=== PATIENT | female | born 1960 | race Hispanic/Latino ===

== ENCOUNTER 2018-09-02 18:41 | Inpatient (IN) | payer SELFPAY ==
[~2018-09-02 18:41] MED LIST: ISOVUE-370 76%-LOCM 1 ML ONE
[2018-09-02 19:29] LABS: #Basophils 0.1 thou/uL (0.0-0.2); #Lymphocytes 1.8 thou/uL (1.20-3.40); #Monocytes 0.3 thou/uL (0.11-0.59); #Neutrophils 6.3 thou/uL (1.40-6.50); %Basophils 0.8 % (0.0-1.0); %Eosinophils 0.2 % (0.0-10.0); %Lymphocytes 21.1 % (21.0-51.0); %Monocytes 3.9 % (0.0-10.0); %Neutrophils 74.1 % (42.0-75.0); Hemoglobin 3.8 g/dL (12.0-16.0); Mean Corpuscular Hemoglobin 22.2 pg (27.0-31.0); Mean Corpuscular Volume 73.9 fL (78.0-98.0); Mean Platelet Volume 7.2 fL (7.4-10.4); Platelet Count 421 thou/uL (130-400); RBC Distribution Width 14.6 % (11.5-14.5); Red Blood Cell (RBC) Count 1.73 mill/uL (4.20-5.40); White Blood Cell (WBC) Count 8.5 thou/uL (4.8-10.8)
[2018-09-02 19:29] LABS: Bilirubin Negative (Negative); Blood, Urine Negative (Negative); Clarity CLEAR (Clear); Glucose, Urine (Dipstick) Negative (Negative); Leukocyte Negative (Negative); Nitrite Negative (Negative); Protein, Urine (Dipstick) Negative (Neg-Trace); Specific Gravity, Urine 1.016 (1.002-1.036); Urobilinogen 0.2 mg/dL (0.2-1.0); pH, Urine 5.5 (5.0-9.0)
[2018-09-02 19:35] LABS: Cocaine Metabolite Screen Not Detected (NotDetected); Medtox Reader # READER 1; Methamphetamine Detected (NotDetected); Phencyclidine (PCP) Not Detected (NotDetected); THC/Cannabinoid Screen Not Detected (NotDetected)
[2018-09-02 19:36] LABS: Amphetamine Detected (NotDetected); Barbiturates Screen Not Detected (NotDetected); Benzodiazepine Screen Not Detected (NotDetected); Medtox Control Line Valid? VALID (VALID); Methadone Not Detected (NotDetected); Opiate Screen Detected (NotDetected); Oxycodone Screen Not Detected (NotDetected); Tricyclic Screen Not Detected (NotDetected)
[2018-09-02 19:40] LABS: Acetaminophen Less than 6.0 mcg/mL (10.0-30.0); Alcohol Less than 10 mg/dL (Less than 10); Salicylate Less than 8.0 mg/dL (15.0-30.0)
[2018-09-02 19:41] LABS: ALT (SGPT) 13 U/L (8-55); AST (SGOT) 16 U/L (5-34); Albumin 3.3 g/dL (3.5-5.0); Alkaline Phosphatase 49 U/L (40-150); Anion Gap 10 mmol/L (10-20); BUN (Urea Nitrogen) 32 mg/dL (9.8-20.1); Bilirubin, Total 0.2 mg/dL (0.2-1.2); Calc. Creatinine Clearance 0 mL/min (70-130); Calcium 8.4 mg/dL (7.8-10.44); Carbon Dioxide 24 mmol/L (22-29); Chloride 111 mmol/L (98-107); Estimated GFR-MDRD 83; Globulin 2.2 g/dL (2.4-3.5); Glucose 127 mg/dL (70-105); Potassium 3.6 mmol/L (3.5-5.1); Protein, Total 5.5 g/dL (6.0-8.3); Sodium 141 mmol/L (136-145)
[2018-09-02 19:45] LABS: Anisocytosis SLIGHT = 6-15 cells (100X) (0-5/hpf); Hypochromia SLIGHT = 6-15 cells (100X) (0-5/hpf); MDiff Complete? YES; Microcytosis SLIGHT = 6-15 cells (100X) (0-5/hpf); Ovalocytes SLIGHT = 2-5 cells (100X) (0-1/hpf); Platelet Morphology Comment Appears Increased; Polychromasia MODERATE = 3-4 cells (100X) (0-2/hpf); Reflex for Review?? YES; Schistocytes SLIGHT = 2-5 cells (100X) (0-1/hpf); Target Cells SLIGHT = 2-5 cells (100X) (0-1/hpf)
[2018-09-02 19:49] LABS: CK (CPK) 87 U/L (29-168); Lipase 13 U/L (8-78)
--- NOTE | 2018-09-02 20:34 | RAD ---
PORTABLE CHEST: History: Chronic back pain, worsening mental status changes. Comparison: 01-22-04 FINDINGS: Heart size and mediastinum are within normal limits. The lungs are clear of infiltrate. No significan t bony findings. IMPRESSION: No active intrathoracic disease. POS: [facility]
--- NOTE | 2018-09-02 21:17 | CT ---
NONCONTRAST CT HEAD: Date: 09-02-18 History: Altered mental status. Comparison: 01-22-04 FINDINGS: There is no evidence of hemorrhage, acute infarction, mass effect or midline shift. Ventricular syste m is noted in size, shape, and position. The visualized paranasal sinuses and mastoid air cells are c lear. Osseous structures appear intact. There has been no significant interval change from prior exam . IMPRESSION: No acute intracranial abnormality is demonstrated. POS: [facility]
--- NOTE | 2018-09-02 22:42 | CT ---
CT ANGIOGRAM THORAX WITH IV CONTRAST AND 3D RECONSTRUCTIONS: Date: 09-02-18 History: Elevated D-Dimer and shortness of breath. Worsening mental status changes. Comparison: None available. FINDINGS: No definite filling defects are seen in the pulmonary arteries to suggest pulmonary embolus. The thor acic aorta is normal in caliber without evidence of aortic dissection. There is no evidence of lymphadenopathy. The lungs are clear. Visualized upper abdomen demonstrates normal CT appearance for arterial phase of imaging. Osseous structures appear intact. IMPRESSION: No CT evidence of pulmonary embolus. POS: [facility]
[2018-09-02] MEDS ORDERED: Guaifenesin DM 100-10/5 ML UDCUP PO PRN (23:40)
[2018-09-02] MEDS ORDERED: Ondansetron PF 4 MG/2 ML Vial IVP PRN (23:40)
[2018-09-03] LABS: Iron 50 ug/dL (50-170); Iron Binding Capacity, Total 344 mcg/dL (265-497)
[2018-09-03 00:21] VITALS: BMI 22.7
[2018-09-03 00:22] LABS: HBSAg Index 0.27 S/CO (0-0.99); HIV (1/2) Antibody/Antigen Non-Reactive (NonReactive); HIV 1/2 INDEX 0.15 S/CO (<1.00); Hep A IgM AB Non-Reactive (NonReactive); Hep A IgM S/CO 0.37 S/CO (0-0.79); Hep B Surf Ag Non-Reactive S/CO (NonReactive); Hep C IgG Ab Non-Reactive (NonReactive); Hep C Index 0.04 S/CO (0-0.79); Hepatitis B Core IgM Abs Non-Reactive (NonReactive)
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
[2018-09-03 01:08] LABS: Hemoglobin 5.2 g/dL (12.0-16.0)
[2018-09-03 01:13] LABS: Folate (Folic Acid) 9.8 ng/mL (7.0-31.4)
[2018-09-03] MEDS: Acetaminophen 325 MG TAB PO PRN ×2 (05:48→12:57)
[2018-09-03] MEDS: Pantoprazole 40 MG VIAL IVP SCH ×2 (09:02→20:26)
[2018-09-03 10:50] LABS: Hemoglobin 6.6 g/dL (12.0-16.0)
[2018-09-03 11:42] LABS: ALT (SGPT) 12 U/L (8-55); AST (SGOT) 11 U/L (5-34); Albumin 2.8 g/dL (3.5-5.0); Alkaline Phosphatase 39 U/L (40-150); Anion Gap 6 mmol/L (10-20); BUN (Urea Nitrogen) 27 mg/dL (9.8-20.1); Bilirubin, Total 0.7 mg/dL (0.2-1.2); Calc. Creatinine Clearance 94 mL/min (70-130); Calcium 7.9 mg/dL (7.8-10.44); Carbon Dioxide 25 mmol/L (22-29); Chloride 113 mmol/L (98-107); Estimated GFR-MDRD Greater than 90; Globulin 1.8 g/dL (2.4-3.5); Glucose 96 mg/dL (70-105); Potassium 3.2 mmol/L (3.5-5.1); Protein, Total 4.6 g/dL (6.0-8.3); Sodium 141 mmol/L (136-145)
[2018-09-03 15:07] LABS: Hemoglobin 6.9 g/dL (12.0-16.0)
--- NOTE | 2018-09-03 15:12 | PDOC.EVN ---
Event Note - Event Note Event Note: Please see H and P by Dr. Landry. Hb after transfusion X 3, 3.8>6.6. Occult blood negative. Patient has a significant former history of Alcohol and smoking. Now no longer smokes or drinks alcohol. Gets Adderall on the streets and takes it randomly as she is self medicating her depression. Awiting GI input. Dr. Araya hospitalist
--- NOTE | 2018-09-03 16:19 | PDOC.EVN ---
Event Note - Event Note Event Note: Please see hAND p AND EVENT NOTE FROM TODAY 09/03/18 Patient was transfused with 4 units pf PRBC. More than 2 hours after 4th transfusion patient became diaphoretic and her blood pressure was 75/35, tachy with HR of 105. Patient was immediatelyplaced in trendelenburg position, fluid bolused. Patient was a little better with BP improving to 88/51. Patient was then transferred to ICU for further management and transfusion reaction order was placed. Will continue to monitor patient and treat her accordingly.
[2018-09-03] MEDS ORDERED: Potassium Chloride 20 MEQ TAB PO SCH (16:30)
[2018-09-03 16:38] LABS: Anion Gap 7 mmol/L (10-20); BUN (Urea Nitrogen) 27 mg/dL (9.8-20.1); Calc. Creatinine Clearance 100 mL/min (70-130); Calcium 7.4 mg/dL (7.8-10.44); Carbon Dioxide 22 mmol/L (22-29); Chloride 114 mmol/L (98-107); Estimated GFR-MDRD Greater than 90; Glucose 114 mg/dL (70-105); Potassium 3.1 mmol/L (3.5-5.1); Sodium 140 mmol/L (136-145)
[2018-09-03 16:44] LABS: Troponin I Less than 0.010 ng/mL (< 0.028)
[2018-09-03] MEDS: Sodium Chloride 0.9% 1,000 ML IV SCH (20:33)
[2018-09-03] MEDS: ALPRAZolam 0.25 MG TAB PO PRN (21:36)
--- NOTE | 2018-09-03 23:34 | CON ---
DATE OF CONSULTATION: HISTORY OF PRESENT ILLNESS: The patient is a 57-year-old female, who was in her normal state of health until the day prior to admission when she presented with severe headache and she had some slurred speech. She was also hallucinating. She denies any melena or hematochezia. She denies any abdominal pain. She denies heavy periods. She denies prior episodes of anemia. PAST MEDICAL HISTORY: Significant for scoliosis, sciatica. PAST SURGICAL HISTORY: Includes and arm fracture. CURRENT MEDICATIONS: Include: 1. [place] p.r.n. 2. Adderall. ALLERGIES: NO KNOWN ALLERGIES. SOCIAL HISTORY: She quit smoking and drinking one year ago. FAMILY HISTORY: Negative for GI or liver disease. REVIEW OF SYSTEMS: CONSTITUTIONAL: Positive for weight loss. Negative for fever or chills. EYES: No blurred vision or double vision. ENT: No sore throat or earaches. CARDIOVASCULAR: No chest pain or palpitation. PULMONARY: No shortness of breath, cough, or wheezing. SKIN: No rashes. NEUROLOGIC: No numbness or seizure activity. PHYSICAL EXAMINATION: GENERAL: Shows a temperature 98.4, pulse 100, respiratory rate 16, and blood pressure was 96/54. LABORATORY DATA: On admission shows a white blood cell count 8.5, hemoglobin 3.8, hematocrit 12.8, MCV is 73.9, platelet count is 421. After several units of transfusion, her hemoglobin is 6.9. Admission chemistry showed BUN 32 with creatinine 0.73, glucose 127, albumin 3.3. Iron is 50, TIBC 344 with percent sat of 15. Hepatitis is negative. Urine drug screen is positive for methamphetamines, amphetamines, and opiates. Chest and thorax CT showed no pulmonary embolus. ASSESSMENT: 1. Severe iron deficiency anemia-no obvious blood loss. She conservatively is using NSAIDs for her chronic pain. 2. Substance abuse. RECOMMENDATIONS: 1. PPI. 2. Monitor. 3. We will probably perform EGD later. 4. Clear liquids okay. Job ID: [id number]
[2018-09-03] MEDS ORDERED: Lorazepam 2 MG/ML VIAL SLOW IVP SCH (23:45)
[2018-09-04] MEDS: Sodium Chloride 0.9% 1,000 ML IV SCH ×2 (00:15→14:44)
[2018-09-04 06:35] LABS: Hemoglobin 5.1 g/dL (12.0-16.0); Mean Corpuscular HGB CONC 32.7 g/dL (32.0-36.0); Mean Corpuscular Hemoglobin 27.8 pg (27.0-31.0); Mean Platelet Volume 6.9 fL (7.4-10.4); Platelet Count 204 thou/uL (130-400); RBC Distribution Width 16.5 % (11.5-14.5); Red Blood Cell (RBC) Count 1.83 mill/uL (4.20-5.40); White Blood Cell (WBC) Count 9.1 thou/uL (4.8-10.8)
[2018-09-04 06:36] LABS: #Basophils 0.1 thou/uL (0.0-0.2); #Eosinphils 0.1 thou/uL (0.0-0.7); #Lymphocytes 1.8 thou/uL (1.20-3.40); #Monocytes 0.5 thou/uL (0.11-0.59); #Neutrophils 6.7 thou/uL (1.40-6.50); %Basophils 0.7 % (0.0-1.0); %Eosinophils 0.8 % (0.0-10.0); %Lymphocytes 20.1 % (21.0-51.0); %Neutrophils 73.3 % (42.0-75.0)
[2018-09-04 06:50] LABS: Anion Gap 5 mmol/L (10-20); BUN (Urea Nitrogen) 34 mg/dL (9.8-20.1); Calc. Creatinine Clearance 107 mL/min (70-130); Calcium 7.6 mg/dL (7.8-10.44); Carbon Dioxide 23 mmol/L (22-29); Chloride 116 mmol/L (98-107); Estimated GFR-MDRD Greater than 90; Glucose 96 mg/dL (70-105); Potassium 3.9 mmol/L (3.5-5.1); Sodium 140 mmol/L (136-145)
[2018-09-04] MEDS: Pantoprazole 40 MG VIAL IVP SCH ×2 (08:10→20:06)
[2018-09-04 08:34] LABS: INR-International Normal Ratio 1.2; Prothrombin Time 15.1 SEC (12.0-14.7)
[2018-09-04] MEDS: Acetaminophen 325 MG TAB PO PRN (10:36)
[2018-09-04] MEDS: ALPRAZolam 0.25 MG TAB PO PRN ×2 (11:32→20:47)
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
--- NOTE | 2018-09-04 19:10 | PDOC.PN ---
- Subjective Encounter Start Date: 09/04/18 Encounter Start Time: 19:09 Subjective: Seen and examined no new complaint - Objective Resuscitation Status - Order Detail: 09/02/18 23:36 Resuscitation Status Routine Resuscitation Status: FULL: Full Resuscitation Vital Signs & Weight: Vital Signs (12 hours) Temp Pulse Ox 09/04/18 19:00 98.0 F 09/04/18 17:53 98.7 F 09/04/18 16:00 97.8 F 09/04/18 14:59 97.9 F 09/04/18 12:16 98.0 F 09/04/18 12:00 97.9 F 09/04/18 11:41 97.9 F 09/04/18 08:37 98.4 F 09/04/18 08:00 98.4 F 100 Weight Admit Weight 120 lb 6.4 oz Weight 120 lb 6.4 oz Most Recent Monitor Data Heart Rate from ECG 96 NIBP 101/51 NIBP BP-Mean 67 Respiration from ECG 20 SpO2 100 I&O: 09/03/18 09/04/18 09/05/18 06:59 06:59 06:59 Intake Total 350 3370 2786 Output Total 1425 1435 Balance 350 1945 1351 Result Diagrams: 09/04/18 06:13 09/04/18 06:13 Phys Exam - Physical Examination Constitutional: NAD HEENT: PERRLA, moist MMs, sclera anicteric, TM's clear Neck: no nodes, no JVD, supple, full ROM Respiratory: no wheezing, no rales, no rhonchi Cardiovascular: no significant murmur, no rub Gastrointestinal: soft, non-tender, no distention, positive bowel sounds Musculoskeletal: pulses present Dx/Plan (1) Polysubstance (excluding opioids) dependence Code(s): F19.20 - OTHER PSYCHOACTIVE SUBSTANCE DEPENDENCE, UNCOMPLICATED Status: Acute (2) Anemia Code(s): D64.9 - ANEMIA, UNSPECIFIED Status: Acute (3) Altered mental state Code(s): R41.82 - ALTERED MENTAL STATUS, UNSPECIFIED Status: Acute - 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
--- NOTE | 2018-09-04 21:20 | PRG ---
DATE OF SERVICE: 09/04/2018 SUBJECTIVE: The patient is feeling well, having no GI complaints. OBJECTIVE: VITAL SIGNS: Pulse is 94, respiratory rate 18, blood pressure 105/67, and temperature 98.0. CHEST: Clear. CARDIOVASCULAR: Regular rate and rhythm. ABDOMEN: Soft and nontender without organomegaly or masses. Bowel sounds are present and normoactive. LABORATORY DATA: Hemoglobin is 5.1 after 4 units of packed RBCs. The patient had 2 stools, which were brown without abnormalities. ASSESSMENT: Severe anemia without evidence of gastrointestinal blood loss. RECOMMENDATIONS: EGD tomorrow. Job ID: [id number]
[2018-09-05 01:29] LABS: Hemoglobin 9.9 g/dL (12.0-16.0)
[2018-09-05] MEDS: Sodium Chloride 0.9% 1,000 ML IV SCH (03:29)
[2018-09-05 04:38] LABS: Hemoglobin 9.6 g/dL (12.0-16.0)
[2018-09-05 04:41] LABS: Reticulocyte Count 4.3 % (0.5-1.5)
[2018-09-05] MEDS: Pantoprazole 40 MG VIAL IVP SCH ×2 (09:24→20:01)
[2018-09-05] MEDS: ALPRAZolam 0.25 MG TAB PO PRN (10:26)
[2018-09-05 11:59] LABS: Hemoglobin 10.7 g/dL (12.0-16.0)
--- NOTE | 2018-09-05 12:10 | PRG ---
DATE OF SERVICE: 09/05/2018 SUBJECTIVE: The patient is feeling better. She is eating well. She is having no nausea or vomiting. The patient had 2 bowel movements yesterday in the ICU. No blood was noted in either bowel movement. OBJECTIVE: VITAL SIGNS: Blood pressure 120/69, pulse 86, respiratory rate 17, temperature 98.5. CHEST: Clear. CARDIOVASCULAR: Regular rate and rhythm. ABDOMEN: Soft, nontender without organomegaly or masses. LABORATORY DATA: Shows a hemoglobin of 9.6, hematocrit 28.5, retic count was 4.3. Chemistries showed an LDH of 144. ASSESSMENT: Severe anemia-there is no evidence of gastrointestinal blood loss and I am not sure why after 8 units transfusion, the patient's hemoglobin is only in 9 range. We will get Hematology to see her and see if there are any other factors. I canceled the EGD for today and will see what hematology says before proceeding on with that. RECOMMENDATION: Await hematology opinion. Job ID: [id number]
--- NOTE | 2018-09-05 13:16 | PRG ---
DATE OF SERVICE: 09/05/2018 Ms. Dodge is showing no signs of blood loss enterically. Her hemoglobin is now stable. Her stool was negative for fecal blood. I suspect she is chronically anemic and dehydrated. A lot of this can be attributed to her methamphetamine use. Lungs, heart, and abdomen are unchanged. Hemoglobin is 10.7. Electrolytes were unremarkable. Creatinine is 0.5. My impression, she is stable for discharge. I have emphasized the importance of finding a doctor clean and seeing a doctor frequently to follow her hemoglobin. I have also encouraged her to be honest with her doctor about her social/drug issues. Her son was in the room, so really could not discuss this in detail and she strongly emphasizes every day that she does not want her children to know she is using drugs. She is stable to move out of the ICU and actually in my opinion , may go home. I will sign off. Job ID: [id number]
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
[2018-09-05] MEDS: Acetaminophen 325 MG TAB PO PRN (15:23)
--- NOTE | 2018-09-05 20:32 | PDOC.PN ---
- Subjective Encounter Start Date: 09/05/18 Encounter Start Time: 09:00 Patient seen and examined for Anemia. No N/V. No new complaints. No overnight events - Objective Resuscitation Status - Order Detail: 09/02/18 23:36 Resuscitation Status Routine Resuscitation Status: FULL: Full Resuscitation MAR Reviewed: Yes Vital Signs & Weight: Vital Signs (12 hours) Temp Pulse Resp BP Pulse Ox 09/05/18 16:26 97.5 F L 84 18 107/66 99 09/05/18 16:22 97.5 F L 84 18 107/66 99 Weight Admit Weight 120 lb 6.4 oz Weight 120 lb 6.4 oz Most Recent Monitor Data Heart Rate from ECG 91 NIBP 120/69 NIBP BP-Mean 86 Respiration from ECG 17 SpO2 100 I&O: 09/04/18 09/05/18 09/06/18 06:59 06:59 06:59 Intake Total 3370 4154 1963 Output Total 1425 2745 340 Balance 1945 1409 1623 Result Diagrams: 09/05/18 11:50 09/04/18 06:13 EKG Reviewed by me: Yes (Tele SR) Phys Exam - Physical Examination Constitutional: NAD Respiratory: no wheezing, no rales, no rhonchi, clear to auscultation bilateral Cardiovascular: RRR, no rub no heaves/pulsations Gastrointestinal: soft, non-tender, no distention, positive bowel sounds Musculoskeletal: no edema, pulses present Neurological: non-focal, normal sensation, moves all 4 limbs Psychiatric: normal affect, A&O x 3 Skin: no rash Dx/Plan - Plan out of bed/ambulate, DVT proph w/SCDs 1. Severe symptomatic Anemia - ?etio 2. Toxic Metabolic Encephalopathy - multifactorial 3. Hypokalemia 4. Moderate PEM 5. Polysubstance abuse PLAN: DC IVF Change PPI to PO (Hemoccult stool negative) Add MVM/Folic acid and Vit B12 Transfer to medical AM labs Plan d/w Hematology Review of Systems - Review of Systems Respiratory: negative: Cough, Dry, Shortness of Breath, Hemoptysis, SOB with Excertion, Pleuritic Pain, Sputum, Wheezing Cardiovascular: negative: chest pain, palpitations, orthopnea, paroxysmal nocturnal dyspnea, edema, light headedness, other Gastrointestinal: negative: Nausea, Vomiting, Abdominal Pain, Diarrhea, Constipation, Melena, Hematochezia, Other - Medications/Allergies Allergies/Adverse Reactions: Allergies Allergy/AdvReac Type Severity Reaction Status Date / Time No Known Allergies Allergy Unverified 09/03/18 00:15 Medications: Current Medications Acetaminophen (Tylenol) 650 mg PO Q4H PRN PRN Reason: Headache/Fever/Mild Pain (1-3) Last Admin: 09/05/18 15:23 Dose: 650 mg Alprazolam (Xanax) 0.25 mg PO BID PRN PRN Reason: Anxiety Last Admin: 09/05/18 10:26 Dose: 0.25 mg Cyanocobalamin (Vitamin B-12) 1,000 mcg PO DAILY [facility] Folic Acid (Folvite) 1 mg PO DAILY [facility] Guaifenesin/Dextromethorphan (Robitussin Dm) 15 ml PO Q4H PRN PRN Reason: Cough Multivitamins (Theragran) 1 tab PO DAILY [facility] Ondansetron HCl (Zofran) 4 mg IVP Q6H PRN PRN Reason: Nausea/Vomiting Last Admin: 09/03/18 20:26 Dose: 4 mg Pantoprazole Sodium (Protonix) 40 mg IVP Q12HR JEFFREY Last Admin: 09/05/18 20:01 Dose: 40 mg Sodium Chloride (Flush - Normal Saline) 10 ml IVF PRN PRN PRN Reason: Saline Flush
[2018-09-05] MEDS: Magnesium Chloride 64 MG TAB PO SCH (21:15)
[2018-09-06] MEDS: Acetaminophen 325 MG TAB PO PRN (06:41)
[2018-09-06 07:02] LABS: Hemoglobin 9.9 g/dL (12.0-16.0)
[2018-09-06] MEDS ORDERED: Potassium Chloride 20 MEQ TAB PO SCH (08:00)
[2018-09-06 08:26] VITALS: TEMP 98.5
[2018-09-06] MEDS ORDERED: Multivit, Therapeutic 1 TAB PO SCH (09:00)
[2018-09-06] MEDS ORDERED: Folic Acid 1 MG TAB PO SCH (09:00)
[2018-09-06] MEDS ORDERED: Cyanocobalamin (Vitamin B-12) 1,000 MCG TAB PO SCH (09:00)
[2018-09-06] MEDS: Magnesium Chloride 64 MG TAB PO SCH (09:15)
--- NOTE | 2018-09-06 10:08 | PRG ---
DATE OF SERVICE: 09/06/2018 SUBJECTIVE: The patient is feeling well except for some upper respiratory sinus type issues. No blood in her stool. No abdominal pain. No GI symptoms whatsoever. Hemolytic anemia workup was seemed to be negative. OBJECTIVE: VITAL SIGNS: Temperature 98.5, pulse 84, respiratory rate 18, and blood pressure 106/71. CHEST: Clear. CARDIOVASCULAR: Regular rate and rhythm. ABDOMEN: Benign. LABORATORY DATA: Show a hemoglobin 9.9 and hematocrit 30.3. ASSESSMENT: Anemia - felt to be secondary to drug abuse. RECOMMENDATIONS: 1. Consider endoscopy if the patient has any evidence of bleeding or recurrent anemia. 2. We will sign off. Job ID: [id number]
[2018-09-06 11:49] VITALS: BP 122/76
--- NOTE | 2018-09-07 13:44 | EKG ---
Test Reason : Blood Pressure : / mmHG Vent. Rate : 121 BPM Atrial Rate : 121 BPM P-R Int : 134 ms QRS Dur : 074 ms QT Int : 324 ms P-R-T Axes : 054 087 148 degrees QTc Int : 460 ms Sinus tachycardia Nonspecific T wave abnormality Abnormal ECG Confirmed by DRU AVILA, CADEN ([id number]), editor in chief newspaper [employer] MINER ([id number]) on 09/07/2018 1:44:40 PM Referred By: Confirmed By:CADEN GONSALES MD
--- NOTE | 2018-09-08 02:23 | DIS ---
DATE OF ADMISSION: 09/02/2018 DATE OF DISCHARGE: 09/06/2018 DISCHARGE DISPOSITION: Home. FOLLOWUP: 1. Follow up with primary care physician at [facility] in 1 week. 2. Follow up with Hematology, Dr. Radhames Velasquez in 1 week. The patient was seen and examined on the day of discharge. Denies any new complaints. No chest pain, shortness of breath, palpitations, melena, or hematochezia reported. BRIEF HOSPITAL COURSE: The patient is a 57-year-old female, who presented to the hospital with altered mentation. Her workup in the emergency room was consistent with hemoglobin of 3.8. Please refer to the history and physical for further details. The patient was admitted to the intensive care unit with a diagnosis of severe anemia with encephalopathy. The stool was negative for occult blood. She was evaluated by Gastroenterology Service, Dr. Self. There was no evidence of gastrointestinal bleeding per Dr. Self. She was advised to follow up with Gastroenterology Service as outpatient if she develops any melena or hematochezia. She was also seen by Hematology Service as well as Critical Care during the hospital stay. During one of the blood transfusion, irineo acharya was called since the patient was diaphoretic and had altered mentation. She has been cleared by consultants for discharge. Lifestyle modification was emphasized. Urine drug screen on admission was positive for opiates, amphetamine, and methamphetamine. She was advised to follow [facility] for repeat labs. FINAL DIAGNOSES: 1. Toxic metabolic encephalopathy, multifactorial. 2. Severe symptomatic anemia, status post total of 8 units of PRBC. 3. Hypokalemia, replaced. 4. Moderate protein energy malnutrition. 5. Polysubstance abuse. DIAGNOSTIC TESTS: 1. Reticulocyte count 4.3. 2. Hemoglobin at discharge is 9.9. 3. Troponin was negative. Vitamin B12 373, folic acid 9.8. 4. Urine drug screen positive for opiates, amphetamine, and methamphetamine. 5. Acute hepatitis profile was negative. HIV was negative. 6. Potassium at discharge 3.9. Lowest potassium was 3.1. 7. Haptoglobin 69, LDH 144. Urinalysis was negative. PLAN: Plan of care was discussed with the patient in detail. Job ID: [id number]
== END 2018-09-06 14:47 | disposition home or self-care (01) | DRG 811 ==
LOC: ERS 18:41 → 2NO 23:56 → CCU 09-03 16:16 → T4-A 09-05 10:42
PROVIDERS: ADMIT Emergency Medicine; ATTEND Emergency Medicine
PROC: 30233N1 Transfusion of Nonautologous Red Blood Cells into Peripheral Vein, Percutaneous Approach (ICD-10-PCS; principal; 2018-09-02)
DX: D50.9 Iron deficiency anemia, unspecified (principal); G92 Toxic encephalopathy; E44.0 Moderate protein-calorie malnutrition; E86.0 Dehydration; E87.6 Hypokalemia; M41.9 Scoliosis, unspecified; Z68.22 Body mass index [BMI] 22.0-22.9, adult; Z79.899 Other long term (current) drug therapy; Z87.891 Personal history of nicotine dependence; F32.9 Major depressive disorder, single episode, unspecified
CPT/HCPCS: 36415; 36416; 36430; 51701; 70450; 71045; 71275; 80048; 80053; 80074; 80306; 80307; 81003; 82140; 82274; 82550; 82607; 82746; 83010; 83540; 83550; 83605; 83615; 83690; 83880; 84484; 85014; 85018; 85025; 85046; 85060; 85379; 85610; 85730; 86850; 86900; 86901; 87040; 87389; 87804; 90471; 90686; 93005; 94760; 96360; A4353; C9113; G0008; J2060; J2405; P9016; Q9966

== ENCOUNTER 2018-11-23 19:45 | Emergency (ER) | payer SELFPAY ==
[2018-11-23] MEDS ORDERED: Dexamethasone 10 MG/ML VIAL ONE (20:27)
== END 2018-11-23 20:54 | disposition home or self-care (01) ==
LOC: ERS 19:45
DX: L25.9 Unspecified contact dermatitis, unspecified cause (principal); I10 Essential (primary) hypertension; Z79.899 Other long term (current) drug therapy
CPT/HCPCS: 96372; J1100

== ENCOUNTER 2021-02-25 17:14 | Emergency (ER) | payer SELFPAY ==
[2021-02-25] MEDS ORDERED: Acetaminophen 325 MG TAB ONE (21:25)
[2021-02-26 21:37] LABS: SARS-CoV-2 PCR by NAA Not Detected (NotDetected)
== END 2021-02-25 21:33 | disposition home or self-care (01) ==
LOC: ERS 17:14
DX: R05 Cough (principal); J31.0 Chronic rhinitis; Z20.822 Contact with and (suspected) exposure to COVID-19; I10 Essential (primary) hypertension; D64.9 Anemia, unspecified
CPT/HCPCS: 99283; U0003; U0005

== ENCOUNTER 2022-06-07 08:34 | Emergency (ER) | payer SELFPAY ==
[2022-06-07] MEDS ORDERED: Ketorolac Tromethamine 30 MG/ML VIAL ONE (11:07)
== END 2022-06-07 13:40 | disposition home or self-care (01) ==
LOC: ERS 08:34
DX: M25.561 Pain in right knee (principal); I10 Essential (primary) hypertension
CPT/HCPCS: 96372; J1885